=== PATIENT | female | born 1990 | race Caucasian/White ===

== ENCOUNTER 2021-05-05 10:34 | Emergency (ER) | payer SELFPAY ==
--- NOTE | 2021-05-05 11:33 | EDM.PDOC ---
ED HPI GENERAL MEDICAL PROBLEM - General Chief Complaint: Neck Problem Stated Complaint: FELL OFF H[place] HURT NECK Time Seen by Provider: 05/05/21 11:25 Source of Information: Reports: Patient. Denies: Old Records History Limitations: Reports: No Limitations - History of Present Illness INITIAL COMMENTS - FREE TEXT/NARRATIVE: 30 yo female fell out of a hammock about 10 pm last night striking her upper back/lower neck when she hit the ground. Took Aleve last night and again this AM with minimal relief. Bit her tongue somewhat also at the time of the fall. Is from [place]. 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 (see below) (Aleve 2) Upper Back Pain Score (Numeric/FACES): 10 - Related Data Allergies Allergy/AdvReac Type Severity Reaction Status Date / Time No Known Allergies Allergy Verified 05/05/21 11:47 Home Meds: Home Meds NK [No Known Home Meds] 05/05/21 [History] ED ROS GENERAL - Review of Systems Review Of Systems: See Below Constitutional: Reports: No Symptoms HEENT: Reports: Other (sore tongue) Respiratory: Reports: No Symptoms Cardiovascular: Reports: Lightheadedness Endocrine: Reports: No Symptoms GI/Abdominal: Reports: No Symptoms Musculoskeletal: Reports: Back Pain (upper) Skin: Reports: No Symptoms Neurological: Reports: No Symptoms ED EXAM, UPPER BACK/NECK PAIN - Physical Exam Exam: See Below Exam Limited By: No Limitations General Appearance: Alert, WD/WN, No Apparent Distress, Obese Eye Exam: Bilateral Eye: Normal Inspection Ears Exam: Normal External Exam, Normal Canal, Hearing Grossly Normal Nose Exam: Normal Inspection, No Blood Throat/Mouth Exam: Normal Inspection, Normal Lips, Normal Oropharynx, Normal Voice, No Airway Compromise, Other (minimal tongue wounds from last night's fall) Head Exam: Atraumatic, Normocephalic Neck Exam: Normal Alignment, Normal Inspection, Muscle Spasm, Other (tender to approx T1T2 area). 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 II-XII nml As Tested, No Motor/Sensory Deficits, Alert, Normal Mood/Affect, Oriented x 3 Course - Vital Signs Last Recorded V/S: Last Vital Signs Temp 35.9 C L 05/05/21 11:49 Pulse 76 05/05/21 13:38 Resp 18 05/05/21 13:38 BP 149/88 H 05/05/21 13:38 Pulse Ox 98 05/05/21 13:38 - Orders/Labs/Meds Orders: Active Orders 24 hr Category Date Time Status GLUCOSE POC LAB TO COLLECT JPM [POC] Stat Lab 05/05/21 13:40 Received Labs: Laboratory Tests 05/05/21 Range/Units 13:41 POC Glucose 86 (74-106) mg/dL Meds: Medications Discontinued Medications Generic Name Dose Route Start Last Admin Trade Name Freq PRN Reason Stop Dose Admin Hydromorphone HCl 1 mg 05/05/21 12:14 05/05/21 12:22 Hydromorphone 1 Mg/Ml Syringe IM 05/05/21 12:15 1 mg ONETIME ONE Administration Ondansetron HCl 4 mg 05/05/21 12:14 05/05/21 12:21 Ondansetron 4 Mg Tab.Dis PO 05/05/21 12:15 4 mg ONETIME ONE Administration Ondansetron HCl 4 mg 05/05/21 13:11 05/05/21 13:17 Ondansetron 4 Mg Tab.Dis PO 05/05/21 13:12 4 mg ONETIME ONE Administration - Radiology Interpretation Free Text/Narrative:: T-spine X-rays-neg - Re-Assessments/Exams Free Text/Narrative Re-Assessment/Exam: 05/05/21 13:28 complained of some blurry vision while here, acuity 20/70 bilat, states does not wear glasses. Departure - Departure Time of Disposition: 13:45 Disposition: Home, Self-Care 01 Condition: Fair Clinical Impression: Contusion of thoracic spine, Myopia of both eyes Mild concussion Qualifiers: Encounter type: initial encounter Loss of consciousness presence/duration: without LOC Qualified Code(s): S06.0X0A - Concussion without loss of consciousness, initial encounter - Discharge Information *PRESCRIPTION DRUG MONITORING PROGRAM REVIEWED*: No *COPY OF PRESCRIPTION DRUG MONITORING REPORT IN PATIENT ANNALISE: No Instructions: Head Injury, Adult, [id number], Myopia Referrals: PCP,None [Primary Care Provider] - Forms: ED Department Discharge Additional Instructions: Take Zofran as directed for nausea control. Take ibuprofen 600 mg every 6 hrs with food for pain relief. Add either acetaminophen OR Cotton for added pain relief as needed. Get rechecked by an eye doctor as soon as possible. Eat a light diet today. Recheck as needed. Sepsis Event Note (ED) - Focused Exam Vital Signs: Vital Signs Temp Pulse Resp BP Pulse Ox 05/05/21 13:38 76 18 149/88 H 98 05/05/21 12:19 84 18 134/90 97 05/05/21 11:49 35.9 C L 86 16 136/84 96 05/05/21 11:07 35.9 C L 86 16 136/84 96 - My Orders Last 24 Hours: My Active Orders 05/05/21 13:40 GLUCOSE POC LAB TO COLLECT JPM [POC] Stat - Assessment/Plan Last 24 Hours: My Active Orders 05/05/21 13:40 GLUCOSE POC LAB TO COLLECT JPM [POC] Stat
[2021-05-05] MEDS ORDERED: Ondansetron 4 MG Tab.DIS PO ONE ×2 (12:14→13:11)
[2021-05-05] MEDS ORDERED: HYDROmorphone 1 MG/ML Syringe IM ONE (12:14)
--- NOTE | 2021-05-05 12:30 | CR ---
Thoracic Spine 3V CLINICAL HISTORY: Pain, fall FINDINGS: Patient has a lower thoracic dextrorotoscoliosis The vertebral bodies are normal in height. There is no significant osteophytosis. The pedicles are unremarkable. Impression: Scoliosis No fracture or subluxation
== END 2021-05-05 14:32 | disposition home or self-care (01) ==
LOC: JP.ED 10:34
DX: S06.0X0A Concussion without loss of consciousness, initial encounter (principal); S20.229A Contusion of unspecified back wall of thorax, initial encounter; S01.502A Unspecified open wound of oral cavity, initial encounter; H52.13 Myopia, bilateral; W17.89XA Other fall from one level to another, initial encounter
CPT/HCPCS: 72072; 82947; 96372; 99283; A9270; J1170